=== PATIENT | male | born 1990 | race Two or more races ===

== ENCOUNTER 2017-02-12 21:07 | Emergency (ER) | payer SELFPAY ==
[~2017-02-12] VITALS: Ht 167.6 cm; Wt 63.5 kg
[~2017-02-12 21:07] MED LIST: PROAIR HFA8.5 GM INH
[2017-02-12] MEDS ORDERED: ONDA4TAB10 SL (21:36)
--- NOTE | 2017-02-12 21:36 | PHYS DOC ---
Past Medical History Past Medical History: Asthma Past Surgical History: No Surgical History Alcohol Use: Occasionally Drug Use: None Adult General Chief Complaint Chief Complaint: ABDOMINAL PAIN HPI HPI 26-year-old male presenting to the emergency department today with pain in his abdomen generally without a focus. Pain is sharp mild intermittent nonradiating without alleviating factors. He has nausea with nonbloody nonbilious emesis. This started around 6 PM. He denies any other symptoms. 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 Review of systems is negative for chest pain shortness of breath fevers chills. Positive and with nausea and vomiting. All other review of systems is negative unless otherwise noted in history of present illness. ED course: 26-year-old male presenting to the emergency department today with abdominal pain. Vital signs unremarkable. Pertinent physical exam findings:Soft nontender abdomen without rebound tenderness or guarding present. Negative McBurneys point. Negative Lara sign. No ecchymosis present. Otherwise unremarkable. Patient was given oral ODT Zofran for nausea. Her recommended he follow up with his doctor in the next few days if his symptoms continued or to return here for worsening symptoms. The patient was then discharged home in stable condition to follow up with their primary care physician over the next 2- 3 days. They were to return if their symptoms worsened or if they were concerned for any reason. [id number] discharge instructions and return precautions were given. Patient's questions were answered to their satisfaction. Patient is comfortable plan. Review of Systems Review of Systems SEE ABOVE. Current Medications Current Medications Current Medications Medications (Trade) Dose Ordered Sig/[facility] Start Time Stop Time Status Last Admin Dose Admin Ondansetron HCl (Zofran Odt) 4 mg 1X ONCE 02/12/17 21:45 02/12/17 21:46 DC 02/12/17 21:45 4 MG Allergies Allergies Allergies Coded Allergies Type Severity Reaction Last Updated Verified No Known Drug Allergies 08/09/15 No Physical Exam Physical Exam SEE ABOVE Constitutional: Well developed, well nourished, no acute distress, non-toxic appearance. [] HENT: Normocephalic, atraumatic, bilateral external ears normal, oropharynx moist, no oral exudates, nose normal. [] Eyes: PERRLA, EOMI, conjunctiva normal, no discharge. [] Neck: Normal range of motion, no tenderness, supple, no stridor. [] Cardiovascular:Heart rate regular rhythm, no murmur [] Lungs & Thorax: Bilateral breath sounds clear to auscultation [] Abdomen: Bowel sounds normal, soft, no tenderness, no masses, no pulsatile masses. [] Skin: Warm, dry, no erythema, no rash. [] Back: No tenderness, no CVA tenderness. [] Extremities: No tenderness, no cyanosis, no clubbing, ROM intact, no edema. [] Neurologic: Alert and oriented X 3, normal motor function, normal sensory function, no focal deficits noted. [] Psychologic: Affect normal, judgement normal, mood normal. [] Current Patient Data Vital Signs Vital Signs Date Time Temp Pulse Resp B/P (MAP) Pulse Ox O2 Delivery O2 Flow Rate FiO2 02/12/17 21:46 80 17 135/87 (103) 100 Room Air 02/12/17 21:18 99.1 99.1 EKG EKG [] Radiology/Procedures Radiology/Procedures [] Course & Med Decision Making Course & Med Decision Making Pertinent Labs and Imaging studies reviewed. (See chart for details) [] Dragon Disclaimer Dragon Disclaimer This electronic medical record was generated, in whole or in part, using a voice recognition dictation system. Departure Departure Impression: Primary Impression: Nausea Disposition: 01 HOME, SELF-CARE Condition: STABLE Referrals: NO PCP (PCP) WILDA RIVERS MD Patient Instructions: Nausea and Vomiting Additional Instructions: Thank you for allowing us to participate in your care today. Followup with your primary care physician in 3 days if your symptoms do not improve. Call your Primary Doctor tomorrow and inform them of your visit today. If you do not have a primary care provider you can ask for a list of our primary care providers. Return to the emergency department you have any new or concerning findings. This should be evaluated by the primary care physician and any necessary consulting services for continued management within a few days after discharge. Return to emergency room if you have any new or concerning symptoms including but not limited to fever, chills, nausea, vomiting, intractable pain, any new rashes, chest pain, shortness of air, uncontrolled bleeding, difficulty breathing, and/or vision loss. Scripts Ondansetron (ZOFRAN ODT) 4 Mg Tab.rapdis 1 TAB SL PRN Q8HRS Y for NAUSEA, #6 TAB Prov: BRAULIO ENGLE MD 02/12/17 BRAULIO ENGLE MD Feb 12, 2017 21:36
[2017-02-12] MEDS ORDERED: ONDANSETRON ODT 4 MG TAB.RAPDIS. PO ONE (21:45)
[2017-02-12 21:46] VITALS: BP 135/87
== END 2017-02-12 22:13 | disposition home or self-care (01) ==
LOC: ER 21:07
DX: R11.2 Nausea with vomiting, unspecified (principal); R10.9 Unspecified abdominal pain; J45.909 Unspecified asthma, uncomplicated
CPT/HCPCS: 99284; Q0162